=== PATIENT | female | born 1955 | race Caucasian/White ===

== ENCOUNTER 2021-08-24 08:00 | Outpatient (CLI) | payer OTHER | END 2021-08-24 23:59 | LOC: LAB.N 08:00 | PROVIDERS: ATTEND Physician Assistant | DX: N39.0 Urinary tract infection, site not specified (principal) | CPT/HCPCS: 87077; 87086; 87181 ==

== ENCOUNTER 2022-11-01 12:06 | Outpatient (CLI) | payer MEDICARE ==
--- NOTE | 2022-11-01 13:30 | XRAY Report ---
PROCEDURE: Knee 2 View BILAT INDICATIONS: BILATERAL KNEE PAIN TECHNIQUE: 2 views of the both knee(s) were acquired. COMPARISON: None. FINDINGS: Bones: No fractures or dislocations. No suspicious bony lesions. Mild tricompartmental joint dege neration bilaterally. Soft tissues: No joint effusion. No suspicious soft tissue calcifications. IMPRESSION: Mild degenerative joint disease. Reviewed by: Becky Hampton MD on 11/01/2022 1:29 PM PST Approved by: Becky Hampton MD on 11/01/2022 1:29 PM PST Station ID: [id number]
== END 2022-11-01 12:07 | disposition home or self-care (01) ==
LOC: DI 12:06
PROVIDERS: ATTEND Student in an Organized Health Care Education/Training Program
DX: M17.0 Bilateral primary osteoarthritis of knee (principal)

== ENCOUNTER 2023-02-09 10:59 | Outpatient (CLI) | payer MEDICARE ==
--- NOTE | 2023-02-09 15:09 | DEXA Report ---
PROCEDURE: Dexa Spine and/or Hip INDICATIONS: SCREENING FOR OSTEOPROSIS TECHNIQUE: Dual energy x-ray absorptiometry (DXA) was performed on a [employer] System. Regions measur ed are the AP Spine, femoral neck, and if needed forearm. COMPARISON: 11/21/2007 FINDINGS: Lumbar Spine: Bone Mineral Density 1.354 g/cm/cm,T score 1.4. Normal. Previous T score 0.4. Left Femoral Neck: Bone Mineral Density 0.799 g/cm/cm, T score -1.7. Osteopenia. Previous T score 0.0. Left Hip: Bone Mineral Density 0.889 g/cm/cm,T score -0.9. Normal . Previous T score 0.7. (T score greater or equal to -1.0: NORMAL) (T score from -1.1 to -2.4: OSTEOPENIA) (T score less than or equal to -2.5 to: OSTEOPOROSIS) Impression: By WHO criteria, this patient has low bone density (osteopenia). Patients with diagnosis of osteoporosis or osteopenia should have regular bone mineral density assess ment. For those eligible for Medicare, routine testing is allowed once every 2 years. Testing frequ ency can be increased for patients who have rapidly progressing disease or for those who are receivin g medical therapy to restore bone mass. Reviewed by: Ryna Chow MD on 02/09/2023 3:08 PM PDT Approved by: Ryan Chow MD on 02/09/2023 3:08 PM PDT Station ID: [id number]
== END 2023-02-09 11:00 | disposition home or self-care (01) ==
LOC: DI 10:59
PROVIDERS: ATTEND Student in an Organized Health Care Education/Training Program
DX: Z13.820 Encounter for screening for osteoporosis (principal); M85.88 Other specified disorders of bone density and structure, other site; Z78.0 Asymptomatic menopausal state

== ENCOUNTER 2023-02-09 10:59 | Outpatient (CLI) | payer MEDICARE ==
--- NOTE | 2023-02-16 08:57 | Mammography Report ---
BILATERAL DIGITAL SCREENING MAMMOGRAM 3D/2D: 02/09/2023 CLINICAL: New Baseline exam. Routine screening. Comparison is made to exams dated: 12/22/2008 mammogram and 11/21/2007 mammogram - [facility]. Both breasts are almost entirely fatty (category a/<25% glandular tissue). There are benign calcifications in both breasts. No significant masses, calcifications, or other findings are seen in either breast. There has been no significant interval change. IMPRESSION: BENIGN There is no mammographic evidence of malignancy. A 1 year screening mammogram is recommended. Based on the Tyrer Cuzick model (a risk assessment model) the patients lifetime risk is 4.5% and her 10 year risk is 2.2%. According to the ACR, ACS, and NCCN guidelines, an annual breast MRI exam ed g with mammogram is recommended if the patients lifetime risk is 20% or greater. This exam was interpreted at Station ID: [id number]. NOTE: For mammograms, a report in lay terms will be sent to the patient. Approximately 15% of breast malignancies will not be visualized mammographically. In the management of a palpable breast mass, a negative mammogram must not discourage biopsy of a clinically suspicious lesion. Electronically Signed By: Anibal wagner/genna:02/15/2023 14:03:13 letter sent: No_Letter ACR BI-RADS Category 2: Benign Finding(s) 3342F PARENCHYMAL PATTERN: (F) - The breast(s) demonstrate(s) diffuse fatty replacement. BI-RADS CATEGORY: (2) - 2 Mammogram [id number] 1 year screening LATERALITY: (B)
== END 2023-02-09 11:00 | disposition home or self-care (01) ==
LOC: DI 10:59
PROVIDERS: ATTEND Student in an Organized Health Care Education/Training Program
DX: Z12.31 Encounter for screening mammogram for malignant neoplasm of breast (principal)